=== PATIENT | male | born 1945 | race Caucasian/White ===

== ENCOUNTER 2022-02-19 14:35 | Outpatient (CLI) | payer MEDICARE, OTHER, SELFPAY | END 2022-02-19 14:36 | disposition home or self-care (01) | PROVIDERS: PCP Family Medicine | DX: I51.3 Intracardiac thrombosis, not elsewhere classified (principal); I51.7 Cardiomegaly; I34.0 Nonrheumatic mitral (valve) insufficiency | CPT/HCPCS: 93306; Q9957 ==